=== PATIENT | male | born 1930 | race Caucasian/White ===

== ENCOUNTER 2019-01-29 19:23 | Emergency (ER) | payer MEDICARE, BC ==
[~2019-01-29] VITALS: Ht 175.3 cm; Wt 109.1 kg
[~2019-01-29 19:23] MED LIST: HCTZ 25MG25 MG PO; KLOR-CON 1010 MEQ PO; LASIX 20MG TABL20 MG PO; LISINOPRIL PO; LISINOPRIL30 MG PO; METOPROLOL ER PO; METOPROLOL SUCC25 MG PO; NORVASC 5MG5 MG/TAB PO; PRAVACHOL 20MG20 MG PO; TERAZOSIN HCL PO; TERAZOSIN PO; ZOCOR 20MG20 MG PO; ZOCOR40 MG PO
[2019-01-29 19:29] VITALS: TEMP 97.9
[2019-01-29] MEDS ORDERED: ROXICODONE 55 MG/TAB PO (19:52)
[2019-01-29] MEDS ORDERED: LASIX 40MG TABL40 MG PO (19:52)
[2019-01-29] MEDS ORDERED: COUMADIN 2MG2 MG/TAB PO (19:52)
[2019-01-29] MEDS ORDERED: ALDACTONE 25MG25 M1 PO (19:53)
[2019-01-29] MEDS ORDERED: BETAPACE AF80 MG/TA1 PO (19:58)
[2019-01-29 20:24] LABS: BASO % 0.2 % (0.0-2.0); EOS # 0.1 (0.0-0.7); EOS % 0.6 % (0-4.0); GRAN # 11.5 (1.4-6.5); GRAN % 80.2 % (42.2-75.2); HEMATOCRIT 38.9 % (42.0-52.0); HEMOGLOBIN 12.9 g/dl (13.5-18.0); LYMPH # 1.5 (1.2-3.4); LYMPH % 10.2 % (20.0-51.0); MEAN CELL VOLUME 100 fl (80.0-100.0); MEAN CORPUSCULAR HEMOGLOBIN 33 pg (27.0-31.0); MEAN CORPUSCULAR HGB CONC 33 g/dl (33.0-37.0); MEAN PLATELET VOLUME 10.1 fl (7.4-10.4); MONO # 1.1 (0.1-0.6); MONO % 7.9 % (1.7-9.3); PLATELET COUNT 232 K/mm3 (130-400); RED BLOOD COUNT 3.89 M/mm3 (4.20-5.60); REDCELL DISTRIBUTION WIDTH-CV 13.4 % (11.5-14.5)
[2019-01-29 20:35] LABS: ALANINE AMINOTRANSFERASE 27 U/L (21-72); ALBUMIN 3.5 gm/dL (3.5-5.0); ALKALINE PHOSPHATASE 74 U/L (50-136); ANION GAP 11 mmol/L (7-16); AST,SGOT 28 U/L (15-37); BILIRUBIN,TOTAL 1.1 mg/dL (0.0-1.0); BLOOD UREA NITROGEN 49 mg/dL (9-20); CALCIUM 9.2 mg/dL (8.4-10.2); CARBON DIOXIDE 27 mmol/L (22-30); CHLORIDE 97 mmol/L (98-107); CREATININE, serum 1.74 (0.66-1.25); GLUCOSE 144 mg/dL (74-106); LIPASE 35 U/L (23-300); POTASSIUM 4.9 mmol/L (3.4-5.0); SODIUM 134 mmol/L (137-145); TOTAL PROTEIN 6.6 gm/dL (6.4-8.2)
[2019-01-29 20:48] LABS: TROPONIN-I < 0.012 ng/mL (0.000-0.035)
[2019-01-29 20:54] LABS: INR 2.9 (0.8-3.0); PROTHROMBIN TIME 33.2 SECONDS (9.7-12.8)
[2019-01-29 22:11] LABS: COLLECTION METHOD CLEAN CATCH
[2019-01-29 22:25] LABS: PH 5 (5-8); SQUAMOUS EPITHELIAL 0-2 /hpf; URINE APPEARANCE Clear; URINE BACTERIA None Seen /hpf; URINE BILIRUBIN Negative (NEGATIVE); URINE BLOOD Negative (NEGATIVE); URINE COLOR Yellow; URINE GLUCOSE Negative (NEGATIVE); URINE KETONE Negative (NEGATIVE); URINE LEUKOCYTE ESTERASE Negative (NEGATIVE); URINE NITRATE Negative (NEGATIVE); URINE PROTEIN(semi-quant) Negative (NEGATIVE); URINE RBC 0-2 /hpf; URINE UROBILINOGEN Negative (NEGATIVE)
[2019-01-29] MEDS ORDERED: ZITHROMAX 250M250 MG PO (22:53)
[2019-01-29] MEDS ORDERED: NEXIUM 20MG20 MG PO (22:53)
[2019-01-29] MEDS ORDERED: TESSALON P100 MG/CAP PO (22:53)
[2019-01-30] VITALS: BP 154/74; PULSE 73
== END 2019-01-30 00:06 | disposition home or self-care (01) ==
LOC: COL.ER 19:23
PROVIDERS: Emergency Medicine
DX: J20.9 Acute bronchitis, unspecified (principal); K59.00 Constipation, unspecified; K26.9 Duodenal ulcer, unspecified as acute or chronic, without hemorrhage or perforation; I12.9 Hypertensive chronic kidney disease with stage 1 through stage 4 chronic kidney disease, or unspecified chronic kidney disease; N18.9 Chronic kidney disease, unspecified; Z79.01 Long term (current) use of anticoagulants; Z96.642 Presence of left artificial hip joint; Z98.890 Other specified postprocedural states
CPT/HCPCS: J7030; Q9967